=== PATIENT | male | born 2000 | race Caucasian/White ===

== ENCOUNTER 2024-10-09 10:45 | Emergency (ER) | payer SELFPAY ==
[2024-10-09] VITALS (18 sets, daily range): BP systolic 131–168; BP diastolic 75–96; PULSE 86–105; RESP 18–20; TEMP 36.5–37.3; O2SAT 97–100
--- OUTSIDE RECORDS SUMMARY | 2024-10-09 10:47 | XMS_ITS | Clinical Summary ---
Author Organization [employer] Address [address] [place] [address] Care Team Providers Care Health Care Aide Name Role Phone Unavailable Primary Care Provider Unavailabl e Source Comments You are receiving this document as you are listed as the primary care provider,follow-up provider, or the patient has been referred to you for consultation.This is in compliance with the Medicare and[facility] EHR Incentive Program,which states Providers who transition their patient to another setting of careor provider of care or refers their patient to another provider of care shouldprovide summary care record for each transition of care or referral. [employer] Medications montelukast (SINGULAIR) 10 MG tablet Take 1 Tablet (10 mg) by mouth every evening. 90 Tablet 03/13/2024 1:40 PM CDT 03/13/2024 Active ALBUterol sulfate HFA 108 (90 Base) MCG/ACT inhaler Inhale 1-2 Puffs every 4 hours as needed for Wheezing. 8.5 g 03/13/2024 1:40 PM CDT 03/13/2024 Active Social History Tobacco Use Types Packs/Day Years Used Date Smoking Tobacco: Never Assessed Sex and Gender Information Value Date Recorded Sex Assigned at Not on file Legal Sex Male 12:18 PM CDT Gender Identity Not on file Sexual Orientation Not on file Last Filed Vital Signs Vital Sign Reading Time Taken Comments Blood Pressure 152/79 03/13/2024 12:38 PM CDT Pulse 81 03/13/2024 12:38 PM CDT Temperature 36.8 C (98.3 F) 03/13/2024 12:38 PM CDT Respiratory Rate 20 03/13/2024 12:38 PM CDT Oxygen Saturation 98% 03/13/2024 12:38 PM CDT Inhaled Oxygen Concentration - - Weight - - Height - - Body Mass Index - - Plan of Treatment Health Maintenance Due Date Last Done Comments Hep C Screening (Preventive Services) 2002 MenB Immunization Discussion 2002 HIV Screening (Preventive Services) 2018 Adult Preventive Visit 2020 HepB (1) 2021 COVID-19 Vaccine (2 - season) 2024 06/25/2021 Influenza (#1) 2024 06/25/2021, 01/2021, 05/24/2017 DTaP/Tdap/Td (7 - Tdap) 04/10/2025 04/10/20 15, 04/12/2008, 04/03/2005, Additional history exists Zoster/Shingles (1 of 2) 2052 Hib Completed 08/28/2003, 11/15, 2002 Pneumococcal Aged Out 08/28/2003, 11/15, 2002 No longer eligible based on patient's age to complete this topic IPV (Polio) Completed 04/12/2008, 03/16, 2002, Additional history exists MCV4 Aged Out 04/10/2015 No longer eligi ble based on patient's age to complete this topic HPV Vaccine Completed 03/13/2016, 04/10/2015 HepA Completed 03/13/2016, 04/10/2015 Insurance [employer] [phone]
--- OUTSIDE RECORDS SUMMARY | 2024-10-09 10:47 | XMS_ITS | Clinical Summary ---
Author Organization [place] Address Formerly [facility] [place] [address] Care Team Providers Care Core Drier Name Role Phone Danny Collazo PA-C Primary Care Provider [phone] Allergies Active Allergy Reactions Criticality Noted Date Comments No Known Drug Allergy 2002 Medications montelukast (SINGULAIR) 5 MG chewable tabletIndicatio ns:Intermittent asthma Take 1 tablet by mouth daily. 90 tablet 3 1 Active levalbuterol (XOPENEX) 1.25 MG/3ML nebulizer solutionIndicat ions:Intermitte nt asthma Take 3 mLs by nebulization every 4 hours as needed for shortness of breath / dyspnea. 1 Package 3 2 Active montelukast (SINGULAIR) 5 MG chewable tablet Take 1 tablet by mouth At Bedtime. 90 tablet 1 2 Active montelukast (SINGULAIR) 10 MG tablet Take 0.5 tablets by mouth At Bedtime. 45 tablet 3 3 Active levalbuterol (XOPENEX HFA) 45 MCG/ACT inhalerIndicati ons:Intermitten t asthma Inhale 2 puffs into the lungs every 4 hours as needed for shortness of breath / dyspnea. 1 Inhaler 3 3 Active Active Problems Problem Noted Date Diagnosed Date Intermittent asthma 10/14/2010 Cough 03/08/2007 Immunizations Name Administration Dates Next Due Comvax (HIB/HepB) 2002,2002 DTAP (<7y) 04/12/2008,04/03/2005,2002 ,2002 HepB 2002 MMR 04/12/2008,08/28/2003 Pneumococcal (PCV 7) 08/28/2003,2002,07/25 Poliovirus, inactivated (IPV) 04/12/2008, 005,2002,2002 TDAP (Adacel,Boostrix) 04/10/2015 TRIHIBIT (DTAP/HIB, <7y) 08/28/2003 Varicella 04/12/2008,08/28/2003 Family History Medical History Relation Comments Respiratory Brother 3 Asthma Respiratory Brother 4 Half brother has hayfever Cancer Father Throat cancer-finn rgery and radiation Cerebrovascular Disease Father mini-st rokes Heart Disease Father By-pass Lipids Father Osteoporosis Father Multiple joint f usions Psychotic Disorder Father Depression Thyroid Disease Father Related to radia tion Heart Disease Maternal Grandfather Hypertension Maternal Grandfather Respiratory Maternal Grandfather Gastrointestinal Disease Maternal Grandmother co litis Hypertension Maternal Grandmother Allergies Mother Hayfever Diabetes Mother gestational Gastrointestinal Disease Mother Hx of u lcers Hypertension Mother Controlled with medication Respiratory Mother Asthma Alcohol/Drug Paternal Grandfather Cerebrovascular Disease Paternal Grandfather Alcohol/Drug Paternal Grandmother Heart Disease Paternal Grandmother Relation Status Comments Brother 1 Alive 10 years old Brother 2 Alive Half brother Brother 3 Brother 4 Father Alive To Maternal Grandfather Alive Maternal Grandmother Alive Mother Alive Gabrielle Paternal Grandfather Paternal Grandmother Social History Tobacco Use Types Packs/Day Years Used Date Smoking Tobacco: Passive Smo ke Exposure - Never Smoker Smokeless Tobacco: Never Comments:Smoke in the house Alcohol Use Standard Drinks/Week Comments Not Asked 0 (1 standard drink = 0.6 oz pur e alcohol) Adolescent Education Answer Date Record ed Getting School Help Needed Not on file 06/01 Sex and Gender Information Value Date Recorded Sex Assigned at Not on file 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 Gender Identity Not on file Sexual Orientation Not on file Last Filed Vital Signs Vital Sign Reading Time Taken Comments Blood Pressure 151/70 04/30/2022 10:45 PM CDT Pulse 83 04/30/2022 10:45 PM CDT Temperature 36.4 C (97.5 F) 04/30/2022 8:58 PM CDT Respiratory Rate 20 04/30/2022 10:45 PM CDT Oxygen Saturation 99% 04/30/2022 10:45 PM CDT Inhaled Oxygen Concentration - - Weight 123.8 kg (273 lb) 04/30/2022 8:58 PM CDT Height 185.4 cm (6' 1) 04/30/2022 8:58 PM CDT Body Mass Index 36.02 04/30/2022 8:58 PM CDT Plan of Treatment Health Maintenance Due Date Last Done Comments ADVANCE CARE PLANNING 2002 ANNUAL REVIEW OF HM ORDERS 2002 ASTHMA ACTION PLAN 2002 ASTHMA CONTROL TEST 2002 HIV SCREENING 2017 MENINGITIS B IMMUNIZATION (1 of 2 - Standard) 2018 HEPATITIS C SCREENING 2020 Pneumococcal Vaccine: Pediatrics (0 to 5 Years) and At-Risk Patients (6 to 49 Years) (1 of 2 - PCV) 2021 08/28/2003, 2002, 2002 YEARLY PREVENTIVE VISIT 06/25/2022 06/25/20 21, 04/12/2008, 04/03/2005, Additional history exists COVID-19 Vaccine (2 - season) 2024 06/25/2021 INFLUENZA VACCINE (#1) 2024 , 08/21/2020, 05/24/2017 PHQ-2 (once per calendar year) 2024 DTAP/TDAP/TD IMMUNIZATION (7 - Td or Tdap) 04/10/2025 04/10/2015, 04/12/2008, 04/03/2005, Additional history exists ZOSTER IMMUNIZATION (1 of 2) 2052 RSV VACCINE (1 - 1-dose 75+ series) 2077 HEPATITIS B IMMUNIZATION Completed 003, 2002, 2002, Additional history exists MENINGITIS IMMUNIZATION Aged Out 04/10/2015 No l onger eligible based on patient's age to complete this topic HPV IMMUNIZATION Completed 03/13/2016, , 04/10/2015 RSV MONOCLONAL ANTIBODY Aged Out No l onger eligible based on patient's age to complete this topic Insurance [address], [place] [id number] [address] [place] [id number] WC RISK ADMINSTRATION [facility] Advance Directives For more information, please contact: [phone] * No Code Status (Latest Code Status on File) Date Activated Date Inactivated Comments 07/25/2004 2:39 PM 07/25/2004 3:39 PM Care Teams Core Drier Relationship Specialty Start Date End Date Danny Collazo PA-C [facility] [place] [address] [place] [address] PCP - General Family Practice 10/19/13
--- OUTSIDE RECORDS SUMMARY | 2024-10-09 10:47 | XMS_ITS | Clinical Summary ---
Author Organization [facility] Address [address] [place] [id number] Care Team Providers Care Surgical Elastic Knitter Hand Frame Name Role Phone [facility] Primary Care Provid er Allergies No known active allergies Medications montelukast (Singulair) 10 mg tablet Take 10 mg by mouth once daily. Active Active Problems No known active problems Social History Tobacco Use Types Packs/Day Years Used Date Smoking Tobacco: Former Cigarettes 1 10.1 S tarted: 2014 Smokeless Tobacco: Former Chew Quit: 02/10/2023 Tobacco Cessation:Counseling Given: Not Answered Alcohol Use Standard Drinks/Week Comments Yes 0 (1 standard drink = 0.6 oz pur e alcohol) 1 on weekends Social Connections Answer Date Recorded Do you often feel lonely or isolated from those around you? 4 09/08/2023 Financial Resource Strain Answer Date R ecorded Difficulty of Paying Living Expenses 3 09/08/2023 Difficulty of Paying Living Expenses Not on file 09/08/2023 Food Insecurity Answer Date Recorded Do you worry your food will run out before you are able to buy more? 1 09/08/2023 Transportation Needs Answer Date Record ed Does lack of transportation keep you from medica l appointments? 1 09/08/2023 Does lack of transportation keep you from work, meetings or getting things that you need? 1 09/08/2023 Housing Stability Answer Date Recorded What is your housing situation today? 1 09/08/2023 Utilities Answer Date Recorded Do you have trouble paying f or utilities (for example, heat, electricity, water, phone)? 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 MERCHANDISER Gender Identity Not on file Sexual Orientation Not on file Obstetrics History Last Filed Vital Signs Vital Sign Reading Time Taken Comments Blood Pressure 126/70 09/21/2023 8:10 AM SUPPORT MERCHANDISER Pulse 86 09/21/2023 8:10 AM SUPPORT MERCHANDISER Temperature - - Respiratory Rate 18 09/21/2023 8:10 AM SUPPORT MERCHANDISER Oxygen Saturation - - Inhaled Oxygen Concentration - - Weight 120.2 kg (265 lb) 09/08/2023 8:22 AM SUPPORT MERCHANDISER Height - - Body Mass Index - - Plan of Treatment Health Maintenance Due Date Last Done Comments Tdap 2013 Depression screening for age 12+ 2014 HIV for age 15-65 2017 HPV series for age 9-26 (1 - Male 3-dose series) 2017 BMI (ht and wt on same day) for age 18+ 2020 Hepatitis C screening for ag e 18-79 2020 Tetanus booster 2022 COVID-19 vaccine series ( season) 2024 06/25/2021 Influenza for age 9-49 04/16/2024 Pneumococcal series for age 6-49 Aged Out No longer eligible based on patient's age to complete this topic Insurance [facility] [place] [id number] [place] [employer] [place] [id number] Care Teams Surgical Elastic Knitter Hand Frame Relationship Specialty Start Date End Date [facility] [address] [place] [address] PCP - General 09/08/23
--- NOTE | 2024-10-09 11:18 | ED_ITS ---
HPI - Abdominal Pain General Time Seen by Provider: 11:18 Date Seen: 10/09/24 Chief Complaint: Abdominal Pain Stated Complaint: Abdominal pain, vomited blood Time Seen by Provider: 10/09/24 11:18 Source: patient, RN notes reviewed and old records reviewed Mode of arrival: ambulatory Limitations: no limitations History of Present Illness HPI narrative: Patient is a very pleasant 24-year-old with past history of hematemesis, ongoing use of nicotine who comes to the emergency room with 2 episodes of blood in his vomit as well as abdominal pain. Patient notes the onset of the symptoms yesterday evening. He notes that his entire abdomen hurts and is feeling like somebody is twisting his got. He shows me that most of the pain extends from just below the umbilicus to the epigastrium. He had a normal bowel movement earlier today when he initially tried to be seen at urgent care. He was sent to the emergency room for further evaluation. Patient notes that he did go through some evaluation for previous hematemesis and abdominal pain but never did get endoscopies. Notes that he got better after a few months and just did not go back. He also notes that he has had an echocardiogram in the past and was told that he had 2 holes in his heart but that he should just monitor this. Patient is very concerned and is not wanting any pain medications given his work. He denies fever or other ill contacts. No diarrhea dysuria or hematuria. Patient tells me that he also has some double jointed Giselle. I do ask about Gino Danlos and he says nothing is ever been diagnosed. Does not have a marfanoid type of body habitus. Related Data Home Medications ?Medication ?Instructions ?Recorded ?Confirmed albuterol sulfate 2.5 mg/3 mL 2.5 mg inhalation Q4-6H PRN 10/09/24 10/09/24 (0.083 %) solution for nebulization albuterol sulfate 90 mcg/actuation 2 puff inhalation Q6H PRN 10/09/24 10/09/24 aerosol inhaler montelukast 10 mg tablet 10 mg PO QDAY 10/09/24 10/09/24 Previous Rx's ?Medication ?Instructions ?Recorded hydrocodone 5 mg-acetaminophen 325 1 tab PO Q4-6H PRN pain #6 tabs 10/09/24 mg tablet Allergies Allergy/AdvReac Type Severity Reaction Status Date / Time No Known Drug Allergies Allergy Verified 10/09/24 10:20 Review of Systems Status of ROS Reports: 10 or more systems reviewed and unremarkable except as noted in History and below Const Denies: fever, chills or fatigue Eyes Denies: change in vision ENMT Denies: throat pain, neck pain or nasal congestion Cardio Reports: lightheadedness; Denies: chest pain, swelling of feet/ankles or shortness of breath with exertion Resp Denies: shortness of breath or cough GI Reports: abdominal pain, nausea and vomiting; Denies: diarrhea, constipation or blood in stool Denies: painful urination or urinary frequency Musculo Denies: back pain, neck pain or extremity pain Endo Denies: fatigue PFSH PFSH Social History Smoking Status: Never smoker Do you use any of these nicotine containing products: Vaping Products How often do you have a drink containing alcohol: monthly or less AUDIT-C Alcohol total score: 1 Non-prescribed substance use: denies use Exam Narrative: Exam Narrative: Patient is alert and oriented. He is very respectful. Eyes are clear and EOM is full. Head is atraumatic. Lips are moist. Neck is supple. Heart with a tachycardic rate but normal rhythm. Lungs are clear bilaterally. Abdomen is with discomfort with palpation but no masses are palpated. During our interview patient suddenly has increased pain in his abdomen he becomes diaphoretic and is tearful. He notes that this will last a few minutes. Lower extremities without edema. Bowel sounds are present. Const: Vital Signs, click to edit/add: Vital Signs - 24 hr 10/09/24 11:10 10/09/24 12:23 10/09/24 12:25 Temperature 97.7 F Pulse Rate 103 H 105 H Pulse Rate [Pulse Oximeter] 91 Respiratory Rate 20 Blood Pressure 168/87 H Blood Pressure [Ri ght Upper Arm] 131/95 H Pulse Oximetry 99 99 100 Oxygen Delivery Me thod Room Air 10/09/24 12:30 10/09/24 12:32 10/09/24 12:32 Temperature Pulse Rate 97 95 95 Pulse Rate [Pulse Oximeter] Respiratory Rate Blood Pressure 139/96 H 139/96 H Blood Pressure [Ri ght Upper Arm] Pulse Oximetry 98 98 98 Oxygen Delivery Me thod 10/09/24 12:45 10/09/24 13:00 10/09/24 13:05 Temperature Pulse Rate 92 91 92 Pulse Rate [Pulse Oximeter] Respiratory Rate Blood Pressure Blood Pressure [Ri ght Upper Arm] Pulse Oximetry 99 98 98 Oxygen Delivery Me thod 10/09/24 13:15 10/09/24 13:30 10/09/24 13:35 Temperature Pulse Rate 92 105 H 98 Pulse Rate [Pulse Oximeter] Respiratory Rate Blood Pressure Blood Pressure [Ri ght Upper Arm] Pulse Oximetry 98 98 99 Oxygen Delivery Me thod 10/09/24 13:45 10/09/24 14:00 10/09/24 14:05 Temperature Pulse Rate 86 103 H 100 Pulse Rate [Pulse Oximeter] Respiratory Rate Blood Pressure Blood Pressure [Ri ght Upper Arm] Pulse Oximetry 100 98 97 Oxygen Delivery Me thod 10/09/24 14:15 10/09/24 14:30 10/09/24 14:45 Temperature Pulse Rate 102 H 97 93 Pulse Rate [Pulse Oximeter] Respiratory Rate Blood Pressure Blood Pressure [Ri ght Upper Arm] Pulse Oximetry 98 98 98 Oxygen Delivery Me thod Course Course ED Course: Differential diagnosis includes but is not limited to small-bowel obstruction, constipation, colitis, biliary colic, gastritis. Will place IV and give 1 L of normal saline, Toradol 15 mg, Zofran 4 mg and Protonix 80 mg. Plan on abdominal CT along with CBC, comprehensive panel, CRP, lipase. Reevaluation(s) Reevaluation #1: Patient noted to have return from CT after episode of lightheadedness and confusion. Radiology staff describes him sitting up becoming very pale and weak. Back here in the emergency room he is tremulous but speaking normally to me pupils are equal round and reactive. With talking he gradually settles down and seems to be doing much better. Patient was given morphine 4 mg IV. Reevaluation #2: Patient notes great improvement of his discomfort after morphine. Fortunately abdominal CT does not show any acute findings. Patient did not show any evidence of hypotension while he has been here. His white count is normal as his is CRP. Electrolyte panel also within normal limits including LFTs. Urinalysis without evidence of UTI. Vital Signs Vital signs: Initial Vital Signs Temperature 97.7 F 10/09/24 11:10 Temperature Source Temporal Artery Scan 10/09/24 11:10 Pulse Rate 91 10/09/24 11:10 Respiratory Rate 20 10/09/24 11:10 Blood Pressure 131/95 H 10/09/24 11:10 Blood Pressure Mean 107 H 10/09/24 11:10 Blood Pressure Position Sitting 10/09/24 11:10 Pulse Oximetry 99 10/09/24 11:10 Oxygen Delivery Method Room Air 10/09/24 11:10 Vital Signs Temperature 97.7 F 10/09/24 11:10 Pulse Rate 91 10/09/24 11:10 Respiratory Rate 20 10/09/24 11:10 Blood Pressure 131/95 H 10/09/24 11:10 Pulse Oximetry 99 10/09/24 11:10 Oxygen Delivery Method Room Air 10/09/24 11:10 Temperature 97.7 F 10/09/24 11:10 Pulse Rate 93 10/09/24 14:45 Respiratory Rate 20 10/09/24 11:10 Blood Pressure 139/96 H 10/09/24 12:32 Pulse Oximetry 98 10/09/24 14:45 Oxygen Delivery Method Room Air 10/09/24 11:10 Medications Administered Medications: Discontinued Medications Generic Name Dose Route Start Last Admin Trade Name Freq PRN Reason Stop Dose Admin Sodium Chloride 1,000 mls @ 1,000 mls/hr 10/09/24 11:27 10/09/24 13:45 0.9 % Sodium Chloride 1000 Ml IV 10/09/24 12:26 Infused .Q1H CIPRIANO Infusion Ketorolac Tromethamine 15 mg 10/09/24 11:26 10/09/24 11:46 Ketorolac 15 Mg/Ml Inj IVP 10/09/24 11:27 15 mg ONCE ONE Administration Morphine Sulfate 4 mg 10/09/24 13:16 10/09/24 13:45 Morphine 4 Mg/Ml Inj IVP 10/09/24 13:17 4 mg ONCE ONE Administration Ondansetron HCl 4 mg 10/09/24 11:26 10/09/24 11:48 Ondansetron 2 Mg/Ml Inj IVP 10/09/24 11:27 4 mg ONCE ONE Administration Pantoprazole Sodium 80 mg 10/09/24 11:26 10/09/24 11:58 Pantoprazole Sodium 40 Mg Inj IVP 10/09/24 11:27 80 mg ONCE ONE Administration MDM - Abdominal Pain MDM Narrative Medical decision making narrative: 1. Abdominal pain -at this time CT is reassuring as are laboratory values. Patient was given initially Toradol in the ER which moderately improved his pain. Patient had returned from CT with increasing discomfort at that time was given morphine 4 mg with significant improvement of his symptoms. Fortunately CT does not show any evidence of aortic aneurysm bowel obstruction colitis. He also notes that he has a rectal fissure that is finally in the healing stages. I would like patient to use MiraLax 1/2 cap b.i.d. to clear out some stool. I am wondering if he does have some constipation. 2. Hematemesis-no evidence of vomiting while in the ED or vomiting any blood. He notes this has happened to him in the past as well. He was given Protonix 80 mg IV. Would like him to continue a PPI in the form of omeprazole 40 mg or 2 tablets every evening for the next 2 weeks. He will need to return for worsening symptoms. 3. [id number] on Wednesday with Dr. Jordan surgeon for evaluation of colonoscopy and an endoscopy. This will be at the [facility] at 1030 hours. At that time consult for his fissure is also recommended. Will be discharging patient home in the care of his significant other. Prior to discharge patient voices concerns regarding the possibility of exposure to STI. His significant other was very loving and supportive here today did have intercourse with somebody while she was at college. Will add a GC chlamydia to today's urine sample. Medical Records Attestation: I reviewed the patient's medical records. Lab Data Attestation: I reviewed the patient's lab results. Labs: Lab Results 10/09/24 10/09/24 Range/Units 11:20 11:35 WBC 8.41 (4.50-11.00) K/uL RBC 5.74 (4.30-5.90) m/uL Hgb 16.5 (13.5-17.5) gm/dL Hct 50.3 (37.0-53.0) % MCV 88 (80-100) fL MCH 29 (26-34) pg MCHC 33 (32-36) gm/dL RDW Coeff of Saira 12.6 (11.5-15.5) % Plt Count 220 (140-440) K/uL Neut % (Auto) 82.4 H (42.0-72.0) % Lymph % (Auto) 9.3 L (20-44) % [place] % (Auto) 5.7 (0.0-11.0) % Eos % (Auto) 2.0 (0.0-7.0) % Baso % (Auto) 0.4 (0.0-3.0) % Neut # (Auto) 6.90 (1.7-7.0) K/uL Lymph # (Auto) 0.80 L (0.90-2.90) K/uL [place] # (Auto) 0.50 (0.00-0.90) K/UL Eos # (Auto) 0.17 (0.00-0.50) K/uL Baso # (Auto) 0.03 (0.00-0.30) K/uL Abs Immat Gran (auto) 0.02 (0.00-0.30) K/uL Imm/Tot Granulo (auto) 0.2 % Sodium 141 (135-149) mmol/L Potassium 4.3 (3.6-5.1) mmol/L Chloride 104 (96-114) mmol/L Carbon Dioxide 27 (20-32) mmol/L Anion Gap 10 (7-15) mEq/L BUN 12 (5-24) mg/dL Creatinine 0.9 (0.5-1.5) mg/dL Estimated GFR 124 ml/min Glucose 89 (60-115) mg/dL Lactate 1.3 (0.5-1.9) mmol/L Calcium 9.6 (8.4-10.6) mg/dL Total Bilirubin 0.6 (0.1-1.5) mg/dL AST 19 (12-35) U/L ALT 25 (4-50) U/L Alkaline Phosphatase 74 (40-150) U/L C-Reactive Protein < 0.5 L (0.5-1.0) mg/dL Total Protein 8.1 (6.0-8.3) g/dL Albumin 4.9 (3.3-5.0) g/dL Lipase 76 (23-300) U/L Urine Color Yellow (Yellow) Urine Appearance Clear (Clear) Urine pH 6.0 (5.0-8.5) Ur Specific [place] 1.025 (1.000-1.030) Urine Protein Negative (Negative) Urine Glucose (UA) Negative (Negative) Urine Ketones Negative (Negative) Urine Blood Negative (Negative) Urine Nitrite Negative (Negative) Urine Bilirubin Negative (Negative) Urine Urobilinogen 0.2 (0.2-1.0) Ur Leukocyte Esterase Negative (Negative) Urine RBC 0-2 (0-2) Urine WBC 0-2 (0-5) Ur Squamous Epith Cells None (None-Few) Urine Bacteria None (None) Imaging Data CT scan - abdomen: Attestation: I have reviewed the pertinent imaging results. Radiologist's impression: TECHNIQUE: CT of the abdomen and pelvis with 128 cc of Isovue 370 intravenous contrast. Please note that all CT scans at this facility use dose modulation, iterative reconstruction, and/or weight-based dosing when appropriate to reduce radiation dose to as low as reasonably achievable. FINDINGS: ABDOMEN Liver: Normal contour. Minimal focal fatty infiltration involving the left hepatic lobe adjacent to the intersegmental fissure. No significant focal lesion. No intrahepatic biliary ductal dilatation. Patent portal veins. Patent hepatic veins. Gallbladder: Normal size. No pericholecystic inflammatory changes. Normal common duct caliber. Pancreas: Normal contour and attenuation. No peripancreatic inflammatory changes. No significant focal lesion. Normal main duct caliber. Spleen: Not enlarged. No significant focal lesion. Patent splenic artery and vein. Adrenal Glands: Symmetrical adrenal glands. No significant focal lesion. Kidneys: Normal bilateral renal attenuation. No significant focal lesion. No nephrolith. No dilatation of the intrarenal collecting systems. No ureteral stone. Nondilated ureters. Patent renal arteries and veins. Gastrointestinal tract: Normal caliber, attenuation and wall thickness of the gastrointestinal tract. No inflammatory changes. Normal small bowel mesentery. Normal appendix. Vascular: Abdominal aorta and its major proximal branches including the celiac, superior mesenteric, inferior mesenteric, renal, and bilateral common iliac arteries are patent. Patent superior mesenteric vein. Peritoneal Cavity/Retroperitoneum: No ascites. No adenopathy. PELVIS No bladder lesion is identified. No significant incidental findings related to the prostate or seminal vesicles. No ascites. No adenopathy. SKELETON AND BODY WALL No acute or significant incidental findings. LOWER THORAX Partially included lower thoracic wall, lungs, pleural spaces and mediastinum are otherwise without significant incidental findings. IMPRESSION: No findings to explain the clinical history of periumbilical abdominal pain or hematemesis. Consider gastroenterology referral for further evaluation (endoscopy) as clinically appropriate Discharge Plan Discharge Clinical Impression: Abdominal pain, Gastritis Patient Disposition: Home, Self-Care Condition: Improved Additional Instructions: Please follow-up with Dr. Jordan our surgeon at [facility] Wednesday am 1030 to discuss symptoms and possible endoscopy and colonoscopy; Continue medication to control acid production in your stomach. Today's dose to the IV should last 24 hours. You may continue taking a similar medication called omeprazole tomorrow evening. I would like you to take 2 tablets or 40 mg of this medicine which is available [id number]. I would like to have you take it for 2 weeks. Avoid all alcohol, spicy foods during this time. I would like you to use MiraLax 1/2 dose morning and night until stools are soft Vicodin a combination of a narcotic called hydrocodone and Tylenol is sent to the pharmacy as we do not have this available in our vending machine at this time. Try to limit use as much as possible. Return to the emergency room for worsening symptoms. Prescriptions: New hydrocodone-acetaminophen 5-325 mg tablet 1 tab PO Q4-6H PRN (Reason: pain) Qty: 6 0RF No Action albuterol sulfate 90 mcg/actuation HFA aerosol inhaler 2 puff inhalation Q6H PRN albuterol sulfate 2.5 mg /3 mL (0.083 %) solution for nebulization 2.5 mg inhalation Q4-6H PRN montelukast 10 mg tablet 10 mg PO QDAY Follow Up/Referrals: Provider,Not a Local [Primary Care Provider] - Stand Alone Forms: [employer] Info Instructions
[2024-10-09 11:26] LABS: Appearance Urine Clear (Clear); Bilirubin Urine Negative (Negative); Blood Urine Negative (Negative); Color Urine Yellow (Yellow); Glucose Urine Negative (Negative); Ketones Urine Negative (Negative); Leukocyte Esterase Urine Negative (Negative); Nitrite Urine Negative (Negative); Protein Urine Negative (Negative); Specific Gravity Urine 1.025 (1.000-1.030); Urobilinogen Urine 0.2 (0.2-1.0)
--- NOTE | 2024-10-09 11:26 | CRLHL7_ITS ---
For Patients: As a result of the 21st Century Cures Act, medical imaging exams and procedure reports are released immediately into your electronic medical record. You may view this report before your referring provider. If you have questions, please contact your health care provider. INDICATION: Periumbilical abdominal pain. Hematemesis. COMPARISON: None available. TECHNIQUE: CT of the abdomen and pelvis with 128 cc of Isovue 370 intravenous contrast. Please note that all CT scans at this facility use dose modulation, iterative reconstruction, and/or weight-based dosing when appropriate to reduce radiation dose to as low as reasonably achievable. FINDINGS: ABDOMEN Liver: Normal contour. Minimal focal fatty infiltration involving the left hepatic lobe adjacent to the intersegmental fissure. No significant focal lesion. No intrahepatic biliary ductal dilatation. Patent portal veins. Patent hepatic veins. Gallbladder: Normal size. No pericholecystic inflammatory changes. Normal common duct caliber. Pancreas: Normal contour and attenuation. No peripancreatic inflammatory changes. No significant focal lesion. Normal main duct caliber. Spleen: Not enlarged. No significant focal lesion. Patent splenic artery and vein. Adrenal Glands: Symmetrical adrenal glands. No significant focal lesion. Kidneys: Normal bilateral renal attenuation. No significant focal lesion. No nephrolith. No dilatation of the intrarenal collecting systems. No ureteral stone. Nondilated ureters. Patent renal arteries and veins. Gastrointestinal tract: Normal caliber, attenuation and wall thickness of the gastrointestinal tract. No inflammatory changes. Normal small bowel mesentery. Normal appendix. Vascular: Abdominal aorta and its major proximal branches including the celiac, superior mesenteric, inferior mesenteric, renal, and bilateral common iliac arteries are patent. Patent superior mesenteric vein. Peritoneal Cavity/Retroperitoneum: No ascites. No adenopathy. PELVIS No bladder lesion is identified. No significant incidental findings related to the prostate or seminal vesicles. No ascites. No adenopathy. SKELETON AND BODY WALL No acute or significant incidental findings. LOWER THORAX Partially included lower thoracic wall, lungs, pleural spaces and mediastinum are otherwise without significant incidental findings. IMPRESSION: No findings to explain the clinical history of periumbilical abdominal pain or hematemesis. Consider gastroenterology referral for further evaluation (endoscopy) as clinically appropriate. Please note that all CT scans at this facility use dose modulation, iterative reconstruction, and/or weight-based dosing when appropriate to reduce radiation dose to as low as reasonably achievable. Dictated by Chalino Drummond MD @ 10/09/2024 1:34:32 PM (Electronically Signed)
[2024-10-09 11:32] LABS: RBC Urine 0-2 (0-2); WBC Urine 0-2 (0-5)
[2024-10-09 11:42] LABS: Lactate* 1.3 mmol/L (0.5-1.9)
[2024-10-09] MEDS: KETOROLAC 15 MG/ML inj IVP (11:46)
[2024-10-09] MEDS: ONDANSETRON 2 MG/ML inj 4 MG IVP (11:48)
[2024-10-09 11:50] LABS: Basophils Absolute Auto 0.03 K/uL (0.00-0.30); Basophils Percent Auto 0.4 % (0.0-3.0); Eosinophils Absolute Auto 0.17 K/uL (0.00-0.50); Hematocrit 50.3 % (37.0-53.0); Hemoglobin* 16.5 gm/dL (13.5-17.5); Immature Granulocytes Abs Auto 0.02 K/uL (0.00-0.30); Immature Granulocytes Pct Auto 0.2 %; Lymphocytes Percent Auto 9.3 % (20-44); Mean Corpuscular HGB Conc 33 gm/dL (32-36); Mean Corpuscular Hemoglobin 29 pg (26-34); Mean Corpuscular Volume 88 fL (80-100); Monocytes Percent Auto 5.7 % (0.0-11.0); Neutrophils Percent Auto 82.4 % (42.0-72.0); Platelet Count* 220 K/uL (140-440); RDW Coefficient of Variation % 12.6 % (11.5-15.5); Red Blood Count 5.74 m/uL (4.30-5.90); White Blood Count* 8.41 K/uL (4.50-11.00)
[2024-10-09 11:54] LABS: Slide Review Reflex No
[2024-10-09] MEDS: 0.9 % SODIUM CHLORIDE 1000 ml 1,000 ML IV (11:58)
[2024-10-09] MEDS: PANTOPRAZOLE SODIUM 40 MG INJ 80 MG IVP (11:58)
[2024-10-09 12:05] LABS: Albumin* 4.9 g/dL (3.3-5.0); Chloride* 104 mmol/L (96-114); Potassium* 4.3 mmol/L (3.6-5.1); Sodium* 141 mmol/L (135-149)
[2024-10-09 12:07] LABS: Bilirubin Total* 0.6 mg/dL (0.1-1.5); Creatinine* 0.9 mg/dL (0.5-1.5); Estimated Glomerular Filt Rate 124 ml/min
[2024-10-09 12:08] LABS: Alanine Aminotransferase* 25 U/L (4-50); Alkaline Phosphatase* 74 U/L (40-150); Anion Gap 10 mEq/L (7-15); Aspartate Amino Transferase* 19 U/L (12-35); Blood Urea Nitrogen* 12 mg/dL (5-24); Carbon Dioxide* 27 mmol/L (20-32); Glucose* 89 mg/dL (60-115); Lipase* 76 U/L (23-300); Total Protein* 8.1 g/dL (6.0-8.3)
[2024-10-09 12:09] LABS: Calcium* 9.6 mg/dL (8.4-10.6)
[2024-10-09 12:12] LABS: C Reactive Protein* < 0.5 mg/dL (0.5-1.0)
--- OUTSIDE RECORDS SUMMARY | 2024-10-09 12:14 | XMS_ITS | Clinical Summary ---
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 Gender Identity Not on file Sexual Orientation Not on file Obstetrics History Last Filed Vital Signs Vital Sign Reading Time Taken Comments Blood Pressure 126/70 09/21/2023 8:10 AM GASTROINTESTINAL TECHNICIAN Pulse 86 09/21/2023 8:10 AM GASTROINTESTINAL TECHNICIAN Temperature - - Respiratory Rate 18 09/21/2023 8:10 AM GASTROINTESTINAL TECHNICIAN Oxygen Saturation - - Inhaled Oxygen Concentration - - Weight 120.2 kg (265 lb) 09/08/2023 8:22 AM GASTROINTESTINAL TECHNICIAN Height - - Body Mass Index - [...] age to complete this topic Insurance [employer] [facility] [place] [id number] [employer] [place] [employer] [place] [employer] [place] [id number] Care Teams School Age Program Teacher Relationship Specialty Start Date End Date [facility] [address] [place] [address] PCP - General 09/08/23
--- OUTSIDE RECORDS SUMMARY | 2024-10-09 12:14 | XMS_ITS | Clinical Summary ---
Author Organization [email or web address] Address [address] [place] [address] Care Team Providers Care Psychiatry Teacher Name Role Phone Unavailable Primary Care Provider Unavailabl e Source Comments You are receiving this document as you are listed as the primary care provider,follow-up provider, or the patient has been referred to you for consultation.This is in compliance with the Medicare and[facility] Clinicca[facility] EHR Incentive Program,which states Providers who transition their patient to another setting of careor provider of care or refers their patient to another provider of care shouldprovide summary care record for each transition of care or referral. [email or web address] Medications montelukast (SINGULAIR) 10 MG tablet Take [...] 03/13/2016, 04/10/2015 [place] [address]
--- OUTSIDE RECORDS SUMMARY | 2024-10-09 12:14 | XMS_ITS | Clinical Summary ---
Author Organization [place] Address [facility] [place] 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
[2024-10-09] MEDS: MORPHINE 4 MG/ML INJ IVP (13:45)
== END 2024-10-09 15:14 | disposition home or self-care (01) ==
PROVIDERS: Emergency Provider Family Medicine
DX: R10.9 Unspecified abdominal pain (principal); K29.70 Gastritis, unspecified, without bleeding
CPT/HCPCS: 36415; 74177; 80053; 81001; 83605; 83690; 85025; 86140; 87491; 87591; 99284; 99285; J1885; J2270; J2405; J2470; J7030; Q9967

== ENCOUNTER 2024-10-11 16:50 | Emergency (ER) | payer SELFPAY ==
[2024-10-11] VITALS (13 sets, daily range): BP systolic 114–143; BP diastolic 51–85; PULSE 64–98; RESP 18–20; TEMP 37; O2SAT 92–100; BMI 33.6
--- OUTSIDE RECORDS SUMMARY | 2024-10-11 16:52 | XMS_ITS | Clinical Summary ---
Author Organization [facility] Address [address] [place] [address] Care Team Providers Care Acid Condenser Name Role Phone Unavailable Primary Care Provider Unavailabl e Source Comments You are receiving this document as you are listed as the primary care provider,follow-up provider, or the patient has been referred to you for consultation.This is in compliance with the Medicare and[facility] Hospital[facility] EHR Incentive Program,which states Providers who transition their patient to another setting of careor provider of care or refers their patient to another provider of care shouldprovide summary care record for each transition of care or referral. [facility] Medications montelukast (SINGULAIR) 10 MG tablet Take [...] 03/13/2016, 04/10/2015 [place] [phone]
--- OUTSIDE RECORDS SUMMARY | 2024-10-11 16:52 | XMS_ITS | Clinical Summary ---
Author Organization [place] Address [facility] 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
--- OUTSIDE RECORDS SUMMARY | 2024-10-11 16:52 | XMS_ITS | Clinical Summary ---
Author Organization [facility] & [facility] Address [address] [place] [address] Care Team Providers Care General Utility Worker Name Role Phone [facility] Primary Care Provid er Allergies No known active allergies Medications montelukast (Singulair) 10 mg tablet Take 10 mg by mouth once daily. 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 Gender Identity Not on file Sexual Orientation Not on file Obstetrics History Last Filed Vital Signs Vital Sign Reading Time Taken Comments Blood Pressure 126/70 09/21/2023 8:10 AM ACID PURIFICATION EQUIPMENT OPERATOR Pulse 86 09/21/2023 8:10 AM ACID PURIFICATION EQUIPMENT OPERATOR Temperature - - Respiratory Rate 18 09/21/2023 8:10 AM ACID PURIFICATION EQUIPMENT OPERATOR Oxygen Saturation - - Inhaled Oxygen Concentration - - Weight 120.2 kg (265 lb) 09/08/2023 8:22 AM ACID PURIFICATION EQUIPMENT OPERATOR Height - - Body Mass Index - [...] age to complete this topic Insurance [facility] [place] [id number] [employer]UE [place] OF [place] RISK ADMINISTRATIVE SERVICES [place] [id number] Care Teams General Utility Worker Relationship Specialty Start Date End Date [facility] [address] [place] [address] PCP - General 09/08/23
--- NOTE | 2024-10-11 20:09 | ED.GENADULT ---
HPI - General Adult General Chief complaint: Abdominal Pain Stated complaint: stomach pain Time Seen by Provider: 10/11/24 20:08 History of Present Illness HPI narrative: Patient presents to the emergency department complaining of abdominal pain. Patient states he was seen for abdominal pain wednesday and was not able to get answers. He has increased weakness and dizziness over the last few days. Patient has been having liquid stools and thought he saw some blood in his stool. Was to follow up with surgery but has been unsuccessful in getting an appointment to this point. 24-year-old young man presenting to the emergency department with concern of abdominal pain. This is now 4th day of abdominal pain. Extensive evaluation in this emergency department 2 days ago following concerns of hematemesis and abdominal pain. He has continued to be intolerant of oral intake. Last vomiting however was twice 2 days ago. Today was on the toilet unsure what was going to come out of which end. Understood to potentially be constipated and has been taking MiraLax. He has now only been producing small watery red stool. More remote history what sounds like an anal fissure. No noted history of inflammatory bowel disorders. He has persistent especially left mid to low abdominal pain with escalations, sharp. Cramping. Can cause him to shake in pain. Was to follow up with General surgery but reports that recommendations were to schedule endoscopy and colonoscopy 1st. Has been feeling lightheaded. Had been prescribed small quantity of Vansant. Girlfriend who is been attending to him gave him half a tablet last night I believe which allowed him to sleep. Is hesitant to opiates given problem in high school. Was given Protonix in the emergency department and then ordered for omeprazole outpatient. No urinary tract symptoms other than earlier in course a singular episode of dysuria. Orthostatics prior to me seeing him are looking to be normal. Related Data Home Medications ?Medication ?Instructions ?Recorded ?Confirmed albuterol sulfate 2.5 mg/3 mL 2.5 mg inhalation Q4-6H PRN 10/09/24 10/11/24 (0.083 %) solution for nebulization albuterol sulfate 90 mcg/actuation 2 puff inhalation Q6H PRN 10/09/24 10/11/24 aerosol inhaler montelukast 10 mg tablet 10 mg PO QDAY 10/09/24 10/11/24 Previous Rx's ?Medication ?Instructions ?Recorded hydrocodone 5 mg-acetaminophen 325 1 tab PO Q4-6H PRN pain #6 tabs 10/09/24 mg tablet peg 3350-electrolytes 236 480 ml PO ONCE #8,000 mL 10/12/24 gram-22.74 gram-6.74 gram-5.86 gram solution (Golytely) Allergies Allergy/AdvReac Type Severity Reaction Status Date / Time No Known Drug Allergies Allergy Verified 10/11/24 18:21 Review of Systems Status of ROS: Reports: 6 or more systems reviewed and unremarkable except as noted in History and below [facility] Social History Smoking Status: Never smoker Do you use any of these nicotine containing products: Vaping Products Second hand tobacco smoke exposure: No How often do you have a drink containing alcohol: monthly or less AUDIT-C Alcohol total score: 1 Non-prescribed substance use: denies use Exam Narrative: Exam Narrative: Very polite, calm, deferential. Appears tired. Breathing easily. Skin is warm and dry. Oropharynx is a little sticky. Non erythematous. Lungs are clear. Heart in regular rate and rhythm. Might be a trace murmur. Abdomen with present bowel sounds. Moderately tender to palpation in the mid abdomen into the left side. Without peritoneal signs. Has well-perfused extremities without edema. Const: Vital Signs, click to edit/add: Vital Signs - 24 hr 10/11/24 18:14 10/11/24 20:01 10/11/24 20:02 Temperature 98.6 F Pulse Rate 71 Pulse Rate [Right Pulse Oximeter] 74 Pulse Rate [orthos tatic lying] 71 Pulse Rate [orthos tatic sitting] 90 Pulse Rate [orthos tatic standing] 94 Respiratory Rate 18 20 Blood Pressure 143/79 H Blood Pressure [Ri ght Upper Arm] 130/84 Blood Pressure [or thostatic lying] 136/80 Blood Pressure [or thostatic sitting] 139/78 Blood Pressure [or thostatic standing ] 140/79 H Pulse Oximetry 100 100 Oxygen Delivery Me thod Room Air 10/11/24 20:26 10/11/24 20:33 10/11/24 20:33 Temperature Pulse Rate 98 65 Pulse Rate [Right Pulse Oximeter] Pulse Rate [orthos tatic lying] Pulse Rate [orthos tatic sitting] Pulse Rate [orthos tatic standing] Respiratory Rate 18 20 Blood Pressure 138/71 133/74 Blood Pressure [Ri ght Upper Arm] Blood Pressure [or thostatic lying] Blood Pressure [or thostatic sitting] Blood Pressure [or thostatic standing ] Pulse Oximetry 98 99 96 Oxygen Delivery Me thod 10/11/24 21:02 10/11/24 21:33 10/11/24 21:49 Temperature 98.6 F Pulse Rate 72 64 Pulse Rate [Right Pulse Oximeter] Pulse Rate [orthos tatic lying] Pulse Rate [orthos tatic sitting] Pulse Rate [orthos tatic standing] Respiratory Rate 20 20 Blood Pressure 127/65 114/51 L Blood Pressure [Ri ght Upper Arm] Blood Pressure [or thostatic lying] Blood Pressure [or thostatic sitting] Blood Pressure [or thostatic standing ] Pulse Oximetry 97 92 Oxygen Delivery Me thod 10/11/24 22:02 10/11/24 22:30 10/11/24 22:32 Temperature 98.6 F Pulse Rate 66 89 Pulse Rate [Right Pulse Oximeter] Pulse Rate [orthos tatic lying] Pulse Rate [orthos tatic sitting] Pulse Rate [orthos tatic standing] Respiratory Rate 20 18 Blood Pressure 129/55 L 135/85 Blood Pressure [Ri ght Upper Arm] Blood Pressure [or thostatic lying] Blood Pressure [or thostatic sitting] Blood Pressure [or thostatic standing ] Pulse Oximetry 97 99 Oxygen Delivery Me thod 10/11/24 23:49 10/11/24 23:52 Temperature 98.6 F 98.6 F Pulse Rate Pulse Rate [Right Pulse Oximeter] 81 81 Pulse Rate [orthos tatic lying] Pulse Rate [orthos tatic sitting] Pulse Rate [orthos tatic standing] Respiratory Rate 18 18 Blood Pressure Blood Pressure [Ri ght Upper Arm] 129/85 129/85 Blood Pressure [or thostatic lying] Blood Pressure [or thostatic sitting] Blood Pressure [or thostatic standing ] Pulse Oximetry 99 Oxygen Delivery Me thod Room Air Documenting provider has reviewed patient's vital signs: yes Course Vital Signs Vital signs: Initial Vital Signs Temperature 98.6 F 10/11/24 18:14 Temperature Source Temporal Artery Scan 10/11/24 18:14 Pulse Rate 74 10/11/24 18:14 Pulse Rhythm Regular 10/11/24 18:14 Pulse Strength 3+ Normal 10/11/24 18:14 Respiratory Rate 18 10/11/24 18:14 Blood Pressure 130/84 10/11/24 18:14 Blood Pressure Mean 99 10/11/24 18:14 Blood Pressure Position Sitting 10/11/24 18:14 Pulse Oximetry 100 10/11/24 18:14 Oxygen Delivery Method Room Air 10/11/24 18:14 Vital Signs Temperature 98.6 F 10/11/24 18:14 Pulse Rate 74 10/11/24 18:14 Respiratory Rate 18 10/11/24 18:14 Blood Pressure 130/84 10/11/24 18:14 Pulse Oximetry 100 10/11/24 18:14 Oxygen Delivery Method Room Air 10/11/24 18:14 Temperature 98.6 F 10/11/24 23:52 Pulse Rate 81 10/11/24 23:52 Respiratory Rate 18 10/11/24 23:52 Blood Pressure 129/85 10/11/24 23:52 Pulse Oximetry 99 10/11/24 23:49 Oxygen Delivery Method Room Air 10/11/24 23:49 Medications Administered Medications: Discontinued Medications Generic Name Dose Route Start Last Admin Trade Name Freq PRN Reason Stop Dose Admin Hyoscyamine 0.25 mg 10/11/24 20:23 10/11/24 20:29 Hyoscyamine Sulfate 0.125 Mg Tab SUBLINGUAL 10/11/24 20:24 0.25 mg ONCE ONE Administration Sodium Chloride 1,000 mls @ 1,000 mls/hr 10/11/24 20:23 10/11/24 21:49 0.9 % Sodium Chloride 1000 Ml IV 10/11/24 21:22 Infused .Q1H ONE Infusion Lactated Ringer's 1,000 mls @ 1,000 mls/hr 10/11/24 21:47 10/11/24 22:35 Lactated Ringers 1000 Ml IV 10/11/24 22:46 Infused .Q1H ONE Infusion Ketorolac Tromethamine 30 mg 10/11/24 21:40 10/11/24 21:49 Ketorolac 30 Mg/Ml Inj IVP 10/11/24 21:41 30 mg ONCE ONE Administration Morphine Sulfate 4 mg 10/11/24 22:31 10/11/24 22:35 Morphine 4 Mg/Ml Inj IVP 10/11/24 22:32 4 mg ONCE ONE Administration Ondansetron HCl 4 mg 10/11/24 20:23 10/11/24 20:30 Ondansetron 2 Mg/Ml Inj IVP 10/11/24 20:24 4 mg ONCE ONE Administration Medical Decision Making MDM Narrative Medical decision making narrative: Persisting abdominal pain of unclear etiology at this point. Would presume intestinal colic due to inflammation. Does appear to have encountered some significant emotional stressors lately as well which might be playing a role. Would check hemoglobin and white count to prompt further more urgent workup. Try to offer symptom relief at this point. Possible in history/details on initial interview clarified in H PI Ordered for normal saline fluid bolus and hyoscyamine and Zofran. Perhaps is experiencing vasovagal episodes secondary to abdominal pain. Labs are reassuring, unremarkable other than mild elevation of CRP. Minimal improvement. Apologetically reporting episodes of escalating pain. With clarification that appears to be constipated to some degree, ordered a one view x-ray. Had spasm of pain requiring dose of morphine prior to this imaging. I did independently review abdominal x-ray. Well-defined bladder apparent. Ultimately did have what looks to have been about 300 mL of urine out. Radiology over-read below Indication: Left lower abdominal pain. Technique: Supine radiographs of the abdomen. Comparison: CT abdomen pelvis 10/09/2024. Findings/Impression: Nonobstructive bowel gas pattern. No radiographic evidence of free intraperitoneal air. No suspicious soft tissue calcifications. No acute osseous abnormality. Dictated by Javad Patterson MD @ 10/11/2024 11:11:23 PM Have not seen affect yet of proton pump inhibitor most likely. But perhaps sucralfate might be helpful in the future. Vitals remain good and stable. Little to offer further in emergent care this evening. Perhaps can assist tomorrow as they seem to have had trouble scheduling endoscopy and potentially colonoscopy. Does have concerns of affordability due to very high deductible healthcare plan. Perhaps does need some assistance with bowel movements. Bleeding as described is most likely rectal passage. See patient discharge plan for further discussion You can continue with MiraLax equivalent dosing adjusting to stool consistency over the next 2-3 weeks. If you are trying for a bowel cleanout, magnesium citrate can be effective. Drink a bottle and repeat next day if no significant result. Otherwise if experiencing particularly hard stools, consider placement of an enema and repeating in an hour if no significant result. These can be of phospho soda or mineral oil. Incidentally mineral oil also helps with constipation. Continue with prescribed omeprazole over the next 2-3 weeks. Tomorrow the ER will try to help you schedule the recommended endoscopy. I feel less convinced of urgent need of colonoscopy if you might have to choose. Prescribing Zofran from [facility] for nausea if you need. Medical Records Medical records reviewed: Yes I reviewed the patient's medical records Lab Data Lab results reviewed: Yes I reviewed the patient's lab results Labs: Lab Results 10/11/24 10/11/24 Range/Units 20:30 21:26 WBC 4.89 (4.50-11.00) K/uL RBC 5.26 (4.30-5.90) m/uL Hgb 15.2 (13.5-17.5) gm/dL Hct 45.3 (37.0-53.0) % MCV 86 (80-100) fL MCH 29 (26-34) pg MCHC 34 (32-36) gm/dL RDW Coeff of Saira 12.7 (11.5-15.5) % Plt Count 183 (140-440) K/uL Neut % (Auto) 42.5 (42.0-72.0) % Lymph % (Auto) 39.3 (20-44) % Fountain % (Auto) 13.9 H (0.0-11.0) % Eos % (Auto) 3.7 (0.0-7.0) % Baso % (Auto) 0.4 (0.0-3.0) % Neut # (Auto) 2.08 (1.7-7.0) K/uL Lymph # (Auto) 1.92 (0.90-2.90) K/uL Fountain # (Auto) 0.70 (0.00-0.90) K/UL Eos # (Auto) 0.18 (0.00-0.50) K/uL Baso # (Auto) 0.02 (0.00-0.30) K/uL Abs Immat Gran (auto) 0.01 (0.00-0.30) K/uL Imm/Tot Granulo (auto) 0.2 % ESR 7 (2-15) mm/hr Sodium 137 (135-149) mmol/L Potassium 4.0 (3.6-5.1) mmol/L Chloride 102 (96-114) mmol/L Carbon Dioxide 25 (20-32) mmol/L Anion Gap 10 (7-15) mEq/L BUN 8 (5-24) mg/dL Creatinine 1.0 (0.5-1.5) mg/dL Estimated Creat Clear 130.95 Estimated GFR 109 ml/min Glucose 82 (60-115) mg/dL Calcium 9.0 (8.4-10.6) mg/dL Total Bilirubin 0.3 (0.1-1.5) mg/dL Direct Bilirubin 0.2 (0.0-0.5) mg/dL AST 16 (12-35) U/L ALT 20 (4-50) U/L Alkaline Phosphatase 68 (40-150) U/L C-Reactive Protein 1.6 H (0.5-1.0) mg/dL Total Protein 7.1 (6.0-8.3) g/dL Albumin 4.4 (3.3-5.0) g/dL Lipase 54 (23-300) U/L SARS-CoV-2 (PCR) Negative SARS-CoV-2 (Negative) Influenza Type A (PCR) Negative PCR FLU A (Negative) Influenza Type B (PCR) Negative PCR FLU B (Negative) RSV (PCR) Negative PCR RSV (Negative) Discharge Plan Discharge Clinical Impression: Abdominal pain, Hematochezia Patient Disposition: Home w/ Parent or Adult Condition: Stable Additional Instructions: You can continue with MiraLax equivalent dosing adjusting to stool consistency over the next 2-3 weeks. If you are trying for a bowel cleanout, magnesium citrate can be effective. Drink a bottle and repeat next day if no significant result. Otherwise if experiencing particularly hard stools, consider placement of an enema and repeating in an hour if no significant result. These can be of phospho soda or mineral oil. Incidentally mineral oil also helps with constipation. Continue with prescribed omeprazole over the next 2-3 weeks. Tomorrow the ER will try to help you schedule the recommended endoscopy. I feel less convinced of urgent need of colonoscopy if you might have to choose. Prescribing Zofran from [facility] for nausea if you need. Prescriptions: No Action albuterol sulfate 90 mcg/actuation HFA aerosol inhaler 2 puff inhalation Q6H PRN albuterol sulfate 2.5 mg /3 mL (0.083 %) solution for nebulization 2.5 mg inhalation Q4-6H PRN montelukast 10 mg tablet 10 mg PO QDAY hydrocodone-acetaminophen 5-325 mg tablet 1 tab PO Q4-6H PRN (Reason: pain) Qty: 6 0RF Follow Up/Referrals: Provider,Not a Local [Primary Care Provider] - Stand Alone Forms: ComptTIA Info Instructions
[2024-10-11] MEDS: HYOSCYAMINE SULFATE 0.125 MG TAB 0.25 MG SUBLINGUAL (20:29)
[2024-10-11] MEDS: 0.9 % SODIUM CHLORIDE 1000 ml 1,000 ML IV (20:30)
[2024-10-11] MEDS: ONDANSETRON 2 MG/ML inj 4 MG IVP (20:30)
[2024-10-11 20:37] LABS: Basophils Absolute Auto 0.02 K/uL (0.00-0.30); Basophils Percent Auto 0.4 % (0.0-3.0); Eosinophils Absolute Auto 0.18 K/uL (0.00-0.50); Eosinophils Percent Auto 3.7 % (0.0-7.0); Hematocrit 45.3 % (37.0-53.0); Hemoglobin* 15.2 gm/dL (13.5-17.5); Immature Granulocytes Abs Auto 0.01 K/uL (0.00-0.30); Immature Granulocytes Pct Auto 0.2 %; Lymphocytes Absolute Auto 1.92 K/uL (0.90-2.90); Lymphocytes Percent Auto 39.3 % (20-44); Mean Corpuscular HGB Conc 34 gm/dL (32-36); Mean Corpuscular Hemoglobin 29 pg (26-34); Mean Corpuscular Volume 86 fL (80-100); Monocytes Percent Auto 13.9 % (0.0-11.0); Neutrophils Absolute Auto 2.08 K/uL (1.7-7.0); Neutrophils Percent Auto 42.5 % (42.0-72.0); Platelet Count* 183 K/uL (140-440); RDW Coefficient of Variation % 12.7 % (11.5-15.5); Red Blood Count 5.26 m/uL (4.30-5.90); Slide Review Reflex No; White Blood Count* 4.89 K/uL (4.50-11.00)
[2024-10-11 20:49] LABS: Chloride* 102 mmol/L (96-114)
[2024-10-11 20:50] LABS: Albumin* 4.4 g/dL (3.3-5.0); Sodium* 137 mmol/L (135-149)
[2024-10-11 20:52] LABS: Blood Urea Nitrogen* 8 mg/dL (5-24); Est. Creatinine Clearance* 130.95; Estimated Glomerular Filt Rate 109 ml/min
[2024-10-11 20:53] LABS: Alkaline Phosphatase* 68 U/L (40-150); Anion Gap 10 mEq/L (7-15); Aspartate Amino Transferase* 16 U/L (12-35); Bilirubin Direct* 0.2 mg/dL (0.0-0.5); Bilirubin Total* 0.3 mg/dL (0.1-1.5); Carbon Dioxide* 25 mmol/L (20-32); Glucose* 82 mg/dL (60-115); Lipase* 54 U/L (23-300); Total Protein* 7.1 g/dL (6.0-8.3)
[2024-10-11 20:54] LABS: Alanine Aminotransferase* 20 U/L (4-50)
[2024-10-11 20:56] LABS: C Reactive Protein* 1.6 mg/dL (0.5-1.0)
--- OUTSIDE RECORDS SUMMARY | 2024-10-11 20:59 | XMS_ITS | Clinical Summary ---
Author Organization [facility] Address Formerly [facility] 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 Gender Identity Not on file Sexual Orientation [...] Insurance [address], [place] [id number] [address] [place] [id number] WC RISK ADMINSTRATION [facility] Advance Directives For more information, please contact: [phone] * No Code Status (Latest Code Status on File) Date Activated Date Inactivated Comments 07/25/2004 2:39 PM 07/25/2004 3:39 PM Care Teams Refrigeration Engine Operator Relationship Specialty Start Date End Date Danny Collazo PA-C [facility] [place] [address] [place] [address] PCP - General Family Practice 10/19/13
--- OUTSIDE RECORDS SUMMARY | 2024-10-11 20:59 | XMS_ITS | Clinical Summary ---
Author Organization [employer] Address [address] [place] [address] Care Team Providers Care Regional Account Manager Name Role Phone Unavailable Primary Care Provider Unavailabl e Source Comments You are receiving this document as you are listed as the primary care provider,follow-up provider, or the patient has been referred to you for consultation.This is in compliance with the Medicare andSumma Healthcaid EHR Incentive Program,which states Providers who transition their patient to another setting of careor provider of care or refers their patient to another provider of care shouldprovide summary care record for each transition of care or referral. [employer] Medications montelukast (SINGULAIR) 10 MG tablet Take [...] 03/13/2016, 04/10/2015 [place] [phone]
--- OUTSIDE RECORDS SUMMARY | 2024-10-11 20:59 | XMS_ITS | Clinical Summary ---
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 Gender Identity Not on file Sexual Orientation Not on file Obstetrics History Last Filed Vital Signs Vital Sign Reading Time Taken Comments Blood Pressure 126/70 09/21/2023 8:10 AM GRAIN AND YEAST PLANTS SUPERVISOR Pulse 86 09/21/2023 8:10 AM GRAIN AND YEAST PLANTS SUPERVISOR Temperature - - Respiratory Rate 18 09/21/2023 8:10 AM GRAIN AND YEAST PLANTS SUPERVISOR Oxygen Saturation - - Inhaled Oxygen Concentration - - Weight 120.2 kg (265 lb) 09/08/2023 8:22 AM GRAIN AND YEAST PLANTS SUPERVISOR Height - - Body Mass Index - [...] age to complete this topic Insurance [facility] [place] [id number] [employer] [place] RISK ADMINISTRATIVE SERVICES [place] [id number] Care Teams Director Of Special Events Relationship Specialty Start Date End Date [facility] [address] [place] [address] PCP - General 09/08/23
[2024-10-11 21:28] LABS: Erythrocyte SedimentationRate* 7 mm/hr (2-15)
[2024-10-11] MEDS: KETOROLAC 30 MG/ML inj IVP (21:49)
[2024-10-11] MEDS: LACTATED RINGERS 1000 ML 1,000 ML IV (21:53)
[2024-10-11 22:15] LABS: PCR FLU A Negative PCR FLU A (Negative); PCR FLU B Negative PCR FLU B (Negative); PCR RSV Negative PCR RSV (Negative); SARS PCR* Negative SARS-CoV-2 (Negative)
[2024-10-11] MEDS: MORPHINE 4 MG/ML INJ IVP (22:35)
== END 2024-10-11 23:59 | disposition home or self-care (01) ==
PROVIDERS: Emergency Provider Family Medicine
DX: R10.32 Left lower quadrant pain (principal); K92.1 Melena
CPT/HCPCS: 36415; 74018; 80048; 80076; 83690; 85025; 85651; 86140; 87631; 94761; 96374; 96375; 99284; A9270; J1885; J2270; J2405; J7030; J7120

== ENCOUNTER 2024-10-16 10:16 | Outpatient (CLI) | payer BC, SELFPAY ==
--- NOTE | 2024-10-16 10:57 | W.ANESCHARGE ---
Anesthesia Charges Start Date/Time Anesthesia Start Date: 10/16/24 Anesthesia Start Time: 11:22 Stop Date/Time Anesthesia Stop Date: 10/16/24 Anesthesia Stop Time: 11:58 Coding CPT Codes CPT Codes: ANES UPR LWR GI NDSC PX - 85718 ([id number]) P2 - PATIENT W/MILD SYST DISEASE, QK - INTEGRATION ANALYST 2-4 CNCRNT ANES PROC, QX - CENTRIFUGAL MACHINE TENDER SVC W/ MD MED DIRECTION
--- NOTE | 2024-10-16 12:00 | W.ANESCHARGE ---
Anesthesia Charges Start Date/Time Anesthesia Start Date: 10/16/24 Anesthesia Start Time: 11:22 Stop Date/Time Anesthesia Stop Date: 10/16/24 Anesthesia Stop Time: 11:58 Coding CPT Codes CPT Codes: ANES UPR LWR GI NDSC PX - 23643 ([id number]) P2 - PATIENT W/MILD SYST DISEASE, QK - LVN 2-4 CNCRNT ANES PROC, QX - COMPANY DANCER SVC W/ MD MED DIRECTION
== END 2024-10-16 10:17 | disposition home or self-care (01) ==
LOC: OP CLINIC 10:17
PROVIDERS: Visit Provider Surgery
DX: K92.2 Gastrointestinal hemorrhage, unspecified (principal); K22.89 Other specified disease of esophagus; K44.9 Diaphragmatic hernia without obstruction or gangrene; K31.7 Polyp of stomach and duodenum; K62.5 Hemorrhage of anus and rectum
CPT/HCPCS: 00813; 43239; 45378; 88305; J2704; J3490

== ENCOUNTER 2025-05-29 15:57 | Emergency (ER) | payer BC, SELFPAY ==
[2025-05-29] VITALS (20 sets, daily range): BP systolic 131–167; BP diastolic 69–108; PULSE 75–94; RESP 10–30; TEMP 36.1; O2SAT 96–100; BMI 36.4
--- OUTSIDE RECORDS SUMMARY | 2025-05-29 16:01 | XMS_ITS | Clinical Summary ---
Author Organization [employer] Address [address] [address] Care Team Providers Care Insurance Producer Name Role Phone Unavailable Primary Care Provider Unavailabl e Source Comments You are receiving this document as you are listed as the primary care provider,follow-up provider, or the patient has been referred to you for consultation.This is in compliance with the Medicare and[facility] EHR Incentive Program,which states Providers who transition their patient to another setting of careor provider of care or refers their patient to another provider of care shouldprovide summary care record for each transition of care or referral. [facility] Medications montelukast (SINGULAIR) 10 MG tablet Take [...] Services) 2018 Adult Preventive Visit 2020 HepB Vaccine (1) 2021 DTaP/Tdap/Td Vaccine (7 - Tdap) 04/10/2025 04/10/2015, 04/12/2008, 04/03/2005, Additional history exists COVID-19 Vaccine (2 - season) 2025 06/25/2021 Influenza Vaccine (#1) 2025 , 08/21/2020, 05/24/2017 Zoster/Shingles Vaccine (1 of 2) 2052 Hib Vaccine Completed 08/28/2003, 11/15, 2002 Pneumococcal Vaccine Aged Out 08/28/2003, 2002, 2002 No longer eligible based on patient's age to complete this topic IPV (Polio) Vaccine Completed 04/12/2008, 04/03/2005, 2002, Additional history exists MCV4 Vaccine Aged Out 04/10/2015 No longer eligi ble based on patient's age to complete this topic HPV Vaccine Completed 03/13/2016, 04/10/2015 HepA Vaccine Completed 03/13/2016, 04/10/2015 Insurance [place] [phone]
--- OUTSIDE RECORDS SUMMARY | 2025-05-29 16:01 | XMS_ITS | Clinical Summary ---
Author Organization [facility] Address [address] [place] [address]. [place] [address] Care Team Providers Care Teamcenter Solution Architect Name Role Phone Danny Collazo PA-C Primary Care Provider [phone] Allergies Active Allergy Reactions Criticality Noted Date [...] Date Intermittent asthma 10/14/2010 Cough 03/08/2007 Immunizations Immunization Administration Dates Next Due Comvax (HIB/HepB) 2002,2002 DTAP (<7y) 04/12/2008,04/03/2005,2002 ,2002 HepB 2002 MMR (MMRII) 04/12/2008,08/28/2003 Pneumococcal (PCV 7) 08/28/2003,2002,07/25 Poliovirus, inactivated (IPV) 04/12/2008, 005,2002,2002 TDAP (Adacel,Boostrix) 04/10/2015 TRIHIBIT (DTAP/HIB, <7y) 08/28/2003 Varicella (Varivax) 04/12/2008,08/28/2003 Family History Medical History Relation Comments [...] on file 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 Gender Identity Not on file Sexual Orientation [...] 04/30/2022 8:58 PM CDT Plan of Treatment Not on file Insurance WC RISK ADMINSTRATION [facility] [place] [address] Advance Directives For more information, please contact: [phone] * No Code Status (Latest Code Status on File) Date Activated Date Inactivated Comments 07/25/2004 2:39 PM 07/25/2004 3:39 PM Care Teams Teamcenter Solution Architect Relationship Specialty Start Date End Date Danny Collazo PA-C [address] [place] [id number] PCP - General Family Practice 10/19/13
--- OUTSIDE RECORDS SUMMARY | 2025-05-29 16:01 | XMS_ITS | Clinical Summary ---
Author Organization [email or web address] [facility] Address [address] [place] [id number] Care Team Providers Care Territory Service Representative Name Role Phone [place] [facility] Primary Care Provid er Allergies No known active allergies Medications montelukast (Singulair) 10 mg tablet Take 10 mg by mouth once daily. 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 Gender Identity Not on file Sexual Orientation Not on file Obstetrics History Last Filed Vital Signs Vital Sign Reading Time Taken Comments Blood Pressure 126/70 09/21/2023 8:10 AM TRAINING FACILITATOR Pulse 86 09/21/2023 8:10 AM TRAINING FACILITATOR Temperature - - Respiratory Rate 18 09/21/2023 8:10 AM TRAINING FACILITATOR Oxygen Saturation - - Inhaled Oxygen Concentration - - Weight 120.2 kg (265 lb) 09/08/2023 8:22 AM TRAINING FACILITATOR Height - - Body Mass Index - - Plan of Treatment Health Maintenance Due Date Last Done Comments Tetanus booster 2013 Depression screening for age 12+ 2014 HIV for age 15-65 2017 HPV series for age 9-45 (1 - Male 3-dose series) 2017 BMI (ht and wt on same day) for age 18+ 2020 Hepatitis C screening for ag e 18-79 2020 Hepatitis B series for 19+ ( 1 of 3 - 19+ 3-dose series) 2021 COVID-19 vaccine series (2 - 2024- season) 2025 06/25/2021 Influenza Vaccine (#1) 2025 RSV vaccine for adults or (1 - 1-dose 75+ series) 2077 Pneumococcal series for age 6-49 Aged Out No longer eligible based on patient's age to complete this topic Insurance [place] [employer] [employer] [employer] [place] [employer] Care Teams Territory Service Representative Relationship Specialty Start Date End Date [place] [facility] [address] [place] [address] PCP - General 09/08/23
[2025-05-29 16:30] LABS: Glucose, Point-of-Care* 100 mg/dl (60-115)
--- NOTE | 2025-05-29 17:23 | ED.GENADULT ---
HPI - General Adult General Chief complaint: Syncope/Fainted Stated complaint: LOC off and on, trembling, lethargic Time Seen by Provider: 05/29/25 16:47 Source: patient Mode of arrival: ambulatory Limitations: no limitations History of Present Illness HPI narrative: 25-year-old male presenting today after syncopal episode at work. 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 He states when he tried to sit up the room started slowly rotating around him. He was able to sit back against his toolbox and drink some water. However at some point in time he passed out. The person he was working with stated that he are lost consciousness. He does not remember this. He does remember his vision going dark. He also remembers a fluttering in his chest at some point in time as well. States that his friend put him in his car and they came to the ER together and he states that his friend told him he passed out in the car as well. He does not remember this. Patient states that he has had his several syncopal episodes in the past. He states that several years ago this occurred a couple times and that several months ago this occurred again when he was having abdominal pain and he ?collapsed at work?. He denies any recent illness, no headache or changes in his vision. No ringing in his ears. No chest pain or abdominal discomfort. He denies any family history of sudden in young members less than 40 years old. Patient does smoke, denies other drug use. Denies alcohol use. States his appetite has been normal recently. States that he has a history of asthma, takes his medications as prescribed which includes albuterol inhaler and montelukast. Related Data Home Medications ?Medication ?Instructions ?Recorded ?Confirmed albuterol sulfate 2.5 mg/3 mL 2.5 mg inhalation Q4-6H PRN 10/09/24 05/29/25 (0.083 %) solution for nebulization albuterol sulfate 90 mcg/actuation 2 puff inhalation Q6H PRN 10/09/24 05/29/25 aerosol inhaler montelukast 10 mg tablet 10 mg PO QDAY 10/09/24 05/29/25 Allergies Allergy/AdvReac Type Severity Reaction Status Date / Time No Known Drug Allergies Allergy Verified 05/10/25 14:06 Review of Systems Status of ROS: Reports: 10 or more systems reviewed and unremarkable except as noted in History and below PFSH PFS Medical History TMJ (dislocation of temporomandibular joint) ?S03.00XA - Dislocation of jaw, unspecified side, initial encounter (ICD-10) Seasonal allergies ?J30.2 - Other seasonal allergic rhinitis (ICD-10) History of snoring ?Z87.898 - Personal history of other specified conditions (ICD-10) History of echocardiogram ?Z92.89 - Personal history of other medical treatment (ICD-10) History of anal fissures ?Z87.19 - Personal history of other diseases of the digestive system (ICD-10) Intermittent asthma ?J45.20 - Mild intermittent asthma, uncomplicated (ICD-10) Reflux esophagitis ?K21.00 - Gastro-esophageal reflux disease with esophagitis, without bleeding (ICD-10) Family History Mother Family history of gestational diabetes High blood pressure Asthma Hayfever Gastric ulcer Father Throat cancer Coronary artery disease Hx of CABG Depression Osteoporosis Cerebrovascular disease High cholesterol Maternal Grandmother High blood pressure Colitis Maternal Grandfather Heart disease High blood pressure Paternal Grandmother Alcohol dependence Paternal Grandfather Alcohol dependence Cerebrovascular disease Heart disease Social History What is your current living situation?: I presently have a place to live Problems where you live: no known problems In the past 12 months, utilities in danger of being shut off: no In past 12 months, lack of transportation kept you from medical appts, meetings, work, or getting things needed for daily living: no In the past 12 mos, have been you worried that your food would run out before you had money to buy more?: never true In the past 12 mos, the food you bought just didn't last and you didn't have money to buy more?: never true Smoking Status: Never smoker Do you use any of these nicotine containing products: Vaping Products Second hand tobacco smoke exposure: No How often do you have a drink containing alcohol: monthly or less AUDIT-C Alcohol total score: 1 Non-prescribed substance use: denies use How often does anyone, including family, friends and others, physically hurt you: never How often does anyone, including family, friends and others, insult or talk down to you: never How often does anyone, including family, friends and others, threaten you with harm: never How often does anyone, including family, friends and others, scream or curse at you: never Exam Narrative: Exam Narrative: Overweight, well-developed patient in no acute distress. Alert and oriented. Answers questions appropriately. Mood and affect are appropriate. Thoughts are goal oriented and rational. No tangential or magical thinking noted. Patient speaks in full sentences without needing to catch his breath. HEENT: Normocephalic atraumatic. Pupils are equally round reactive to light. Extraocular muscles are intact. Conjunctivae are moist without any icterus noted. Moist mucous membranes. Posterior pharynx is normal. Neck is soft without any lymphadenopathy or thyromegaly. No masses are appreciated. Cardiovascular: Heart is regular rate and rhythm S1 and S2 are present without any murmurs. Lungs: Clear to auscultation bilaterally no wheezes rhonchi or rales are appreciated. Patient takes deep breaths without any discomfort. Abdomen: Soft and nontender nondistended with normal bowel sounds. Extremities: Bilateral lower extremities are without edema. Skin: Well perfused without any obvious rashes. Strength is 5/5 of the upper and lower extremities. Cranial nerves 3-12 are normal. [id number] is normal. There is no nystagmus either horizontally or vertically. Gait is normal. Const: Vital Signs, click to edit/add: Vital Signs - 24 hr 05/29/25 16:23 05/29/25 16:46 05/29/25 16:51 Temperature 97 F L Pulse Rate Pulse Rate [Pulse Oximeter] 85 Respiratory Rate 16 10 L Blood Pressure Blood Pressure [Ri ght Upper Arm] 153/93 H Blood Pressure [or thostatic sitting] 153/93 H Blood Pressure [or thostatic standing ] 167/108 H Pulse Oximetry 98 Oxygen Delivery Me thod Room Air 05/29/25 17:21 05/29/25 17:36 05/29/25 17:45 Temperature Pulse Rate Pulse Rate [Pulse Oximeter] Respiratory Rate 12 18 Blood Pressure Blood Pressure [Ri ght Upper Arm] Blood Pressure [or thostatic sitting] Blood Pressure [or thostatic standing ] Pulse Oximetry 97 Oxygen Delivery Me thod 05/29/25 17:59 05/29/25 18:00 05/29/25 18:02 Temperature Pulse Rate 82 94 88 Pulse Rate [Pulse Oximeter] Respiratory Rate 18 30 H 29 H Blood Pressure 150/85 H 145/69 H Blood Pressure [Ri ght Upper Arm] Blood Pressure [or thostatic sitting] Blood Pressure [or thostatic standing ] Pulse Oximetry 97 97 Oxygen Delivery Nv thod 05/29/25 18:15 05/29/25 18:30 05/29/25 18:45 Temperature Pulse Rate 85 92 81 Pulse Rate [Pulse Oximeter] Respiratory Rate 25 H 28 H 22 Blood Pressure Blood Pressure [Ri ght Upper Arm] Blood Pressure [or thostatic sitting] Blood Pressure [or thostatic standing ] Pulse Oximetry 98 96 [facility] 19[facility]00 05/29/25 19:02 05/29/25 19:03 Temperature Pulse Rate 75 85 82 Pulse Rate [Pulse Oximeter] Respiratory Rate 14 20 21 Blood Pressure 131/96 H Blood Pressure [Ri ght Upper Arm] Blood Pressure [or thostatic sitting] Blood Pressure [or thostatic standing ] Pulse Oximetry 100 99 100 Oxygen Delivery Nv thod 05/29/25 19:15 05/29/25 19:30 05/29/25 19:50 Temperature Pulse Rate 93 83 87 Pulse Rate [Pulse Oximeter] Respiratory Rate 18 22 Blood Pressure Blood Pressure [Ri ght Upper Arm] Blood Pressure [or thostatic sitting] Blood Pressure [or thostatic standing ] Pulse Oximetry 100 97 97 Oxygen Delivery Nv thod 05/29/25 20:00 05/29/25 20:02 Temperature Pulse Rate 93 92 Pulse Rate [Pulse Oximeter] Respiratory Rate 22 Blood Pressure 137/85 Blood Pressure [Ri ght Upper Arm] Blood Pressure [or thostatic sitting] Blood Pressure [or thostatic standing ] Pulse Oximetry 98 97 Oxygen Delivery Nv thod Course Course ED Course: Differential includes vasovagal syncope, dehydration, arrhythmia. The patient states that he has had a cardiovascular workup including an echocardiogram which were unremarkable. He believes he has had a heart monitor as well. IV established and patient started on 1 L of normal saline. EKG, read by me, shows normal sinus rhythm with a pulse of 85. Normal QRS, QTC and NH intervals. Blood work is unremarkable. Urinalysis looks mildly dehydrated. No cardiac events while he was here. Vital Signs Vital signs: Initial Vital Signs Temperature 97 F L 05/29/25 16:23 Temperature Source Temporal Artery Scan 05/29/25 16:23 Pulse Rate 85 05/29/25 16:23 Respiratory Rate 16 05/29/25 16:23 Blood Pressure 153/93 H 05/29/25 16:23 Blood Pressure Mean 113 H 05/29/25 16:23 Blood Pressure Position Sitting 05/29/25 16:23 Pulse Oximetry 98 05/29/25 16:23 Oxygen Delivery Method Room Air 05/29/25 16:23 Vital Signs Temperature 97 F L 05/29/25 16:23 Pulse Rate 85 05/29/25 16:23 Respiratory Rate 16 05/29/25 16:23 Blood Pressure 153/93 H 05/29/25 16:23 Pulse Oximetry 98 05/29/25 16:23 Oxygen Delivery Method Room Air 05/29/25 16:23 Temperature 97 F L 05/29/25 16:23 Pulse Rate 92 05/29/25 20:02 Respiratory Rate 22 05/29/25 20:02 Blood Pressure 137/85 05/29/25 20:02 Pulse Oximetry 97 05/29/25 20:02 Oxygen Delivery Method Room Air 05/29/25 16:23 Medications Administered Medications: Discontinued Medications Generic Name Dose Route Start Last Admin Trade Name Freq PRN Reason Stop Dose Admin Sodium Chloride 1,000 mls @ 1,000 mls/hr 05/29/25 18:30 05/29/25 19:26 0.9 % Sodium Chloride 1000 Ml IV 05/29/25 19:29 Infused .Q1H CIPRIANO Infusion Medical Decision Making [facility] Narrative Medical decision making narrative: 25-year-old male status post syncopal episode. Sounds like this has occurred in the past and patient has undergone a workup for it. I would like for him to follow up with primary care provider this week to discuss what happened and to discuss if he needs any further workup at this time. Lab Data Lab results reviewed: Yes I reviewed the patient's lab results Labs: Lab Results 05/29/25 05/29/25 05/29/25 Range/Units 16:29 17:30 17:50 WBC 7.56 (4.50-11.00) K/uL RBC 5.14 (4.30-5.90) m/uL Hgb 14.9 (13.5-17.5) gm/dL Hct 43.2 (37.0-53.0) % MCV 84 (80-100) fL MCH 29 (26-34) pg MCHC 35 (32-36) gm/dL RDW Coeff of Saira 12.5 (11.5-15.5) % Plt Count 247 (140-440) K/uL Neut % (Auto) 61.2 (42.0-72.0) % Lymph % (Auto) 26.6 (20-44) % [place] % (Auto) 7.5 (0.0-11.0) % Eos % (Auto) 3.6 (0.0-7.0) % Baso % (Auto) 0.8 (0.0-3.0) % Neut # (Auto) 4.63 (1.7-7.0) K/uL Lymph # (Auto) 2.01 (0.90-2.90) K/uL [place] # (Auto) 0.60 (0.00-0.90) K/UL Eos # (Auto) 0.27 (0.00-0.50) K/uL Baso # (Auto) 0.06 (0.00-0.30) K/uL Abs Immat Gran (auto) 0.02 (0.00-0.30) K/uL Imm/Tot Granulo (auto) 0.3 % Sodium 136 (135-149) mmol/L Potassium 3.8 (3.6-5.1) mmol/L Chloride 102 (96-114) mmol/L Carbon Dioxide 25 (20-32) mmol/L Anion Gap 9 (7-15) mEq/L BUN 15 (5-24) mg/dL Creatinine 0.9 (0.5-1.5) mg/dL Estimated Creat Clear 144.26 Estimated GFR 123 ml/min Glucose 113 (60-115) mg/dL Lactate 1.9 (0.5-1.9) mmol/L Calcium 9.1 (8.4-10.6) mg/dL Magnesium 2.0 (1.5-2.6) mg/dL Total Bilirubin 0.4 (0.1-1.5) mg/dL Direct Bilirubin 0.3 (0.0-0.5) mg/dL AST 34 (12-35) U/L ALT 54 H (4-50) U/L Alkaline Phosphatase 77 (40-150) U/L Troponin I < 0.01 (0.01-0.04) ng/mL C-Reactive Protein < 0.5 L (0.5-1.0) mg/dL Total Protein 7.8 (6.0-8.3) g/dL Albumin 4.5 (3.3-5.0) g/dL TSH 1.470 (0.270-4.20) uIU/mL Urine Color Yellow (Yellow) Urine Appearance Turbid A (Clear) Urine pH 7.0 (5.0-8.5) Ur Specific [place] 1.020 (1.000-1.030) Urine Protein Negative (Negative) Urine Glucose (UA) Negative (Negative) Urine Ketones Negative (Negative) Urine Blood Negative (Negative) Urine Nitrite Negative (Negative) Urine Bilirubin Negative (Negative) Urine Urobilinogen 0.2 (0.2-1.0) Ur Leukocyte Esterase Negative (Negative) Urine RBC 0-2 (0-2) Urine WBC 0-2 (0-5) Ur Squamous Epith Cells Few (None-Few) Amorphous Sediment Moderate A (None) Urine Bacteria None (None) Salicylates < 1.0 L (1.0-10) mg/dL Urine Opiates Screen Negative (Negative) Ur Oxycodone Screen Negative (Negative) Urine Methadone Screen Negative (Negative) Acetaminophen < 10.0 (10.0-30.0) ug/mL Ur Barbiturates Screen Negative (Negative) U Tricyclic Antidepress Negative (Negative) Ur Phencyclidine Scrn Negative (Negative) Ur Amphetamines Screen Negative (Negative) U Methamphetamines Scrn Negative (Negative) U Benzodiazepines Scrn Negative (Negative) Urine Cocaine Screen Negative (Negative) U Marijuana (THC) Screen Negative (Negative) Ur Drug Screen Comment See Note POC Glucose 100 (60-115) mg/dl ECG Data Attestation: I personally reviewed and interpreted this ECG as follows: Discharge Plan Discharge Clinical Impression: Syncope Patient Disposition: Home, Self-Care Condition: Stable Additional Instructions: Recommend you follow-up with primary care provider this week or next week to discuss what happened today. You should discuss with her whether or not any further testing is necessary. If you have not had a bar host/hostess placed, such as a Holter monitor or a ZIO patch, then I would consider having this done. In the meantime, make sure to stay well hydrated. Prescriptions: No Action albuterol sulfate 90 mcg/actuation HFA aerosol inhaler 2 puff inhalation Q6H PRN albuterol sulfate 2.5 mg /3 mL (0.083 %) solution for nebulization 2.5 mg inhalation Q4-6H PRN montelukast 10 mg tablet 10 mg PO QDAY Follow Up/Referrals: Emiliano Polk MD [Primary Care Provider, Internal Medicine] Stand Alone Forms: [employer] Info Instructions
[2025-05-29 17:58] LABS: Appearance Urine Turbid (Clear)
[2025-05-29 18:03] LABS: Lactate* 1.9 mmol/L (0.5-1.9)
[2025-05-29 18:08] LABS: Cannabinoid Screen Urine Negative (Negative); Methamphetamines Screen Urine Negative (Negative); Tricyclic Antidepressant Urine Negative (Negative)
[2025-05-29 18:12] LABS: Hematocrit* 43.2 % (37.0-53.0); Hemoglobin* 14.9 gm/dL (13.5-17.5); Immature Granulocytes Abs Auto 0.02 K/uL (0.00-0.30); Immature Granulocytes Pct Auto 0.3 %; Lymphocytes Absolute Auto 2.01 K/uL (0.90-2.90); Mean Corpuscular HGB Conc 35 gm/dL (32-36); Mean Corpuscular Hemoglobin 29 pg (26-34); Mean Corpuscular Volume 84 fL (80-100); RDW Coefficient of Variation % 12.5 % (11.5-15.5); Red Blood Count* 5.14 m/uL (4.30-5.90); White Blood Count* 7.56 K/uL (4.50-11.00)
[2025-05-29 18:18] LABS: Slide Review Reflex No
[2025-05-29 18:19] LABS: Albumin* 4.5 g/dL (3.3-5.0); Chloride* 102 mmol/L (96-114); Potassium* 3.8 mmol/L (3.6-5.1); Sodium* 136 mmol/L (135-149)
[2025-05-29 18:21] LABS: Blood Urea Nitrogen* 15 mg/dL (5-24); Creatinine* 0.9 mg/dL (0.5-1.5); Est. Creatinine Clearance* 144.26; Estimated Glomerular Filt Rate 123 ml/min
[2025-05-29 18:22] LABS: Alanine Aminotransferase* 54 U/L (4-50); Alkaline Phosphatase* 77 U/L (40-150); Anion Gap 9 mEq/L (7-15); Aspartate Amino Transferase* 34 U/L (12-35); Bilirubin Direct* 0.3 mg/dL (0.0-0.5); Bilirubin Total* 0.4 mg/dL (0.1-1.5); Calcium* 9.1 mg/dL (8.4-10.6); Carbon Dioxide* 25 mmol/L (20-32); Glucose* 113 mg/dL (60-115); Total Protein* 7.8 g/dL (6.0-8.3)
[2025-05-29 18:27] LABS: Acetaminophen* < 10.0 ug/mL (10.0-30.0); Salicylate* < 1.0 mg/dL (1.0-10)
== END 2025-05-29 20:50 | disposition home or self-care (01) ==
PROVIDERS: Emergency Provider Family Medicine; PCP Internal Medicine
DX: R55 Syncope and collapse (principal)
CPT/HCPCS: 36415; 80048; 80076; 80143; 80179; 80306; 81001; 82947; 83605; 83735; 84443; 84484; 85025; 86140; 87086; 93005; 94761; 96360; 99284; J7030

== ENCOUNTER 2025-06-07 14:04 | Outpatient (CLI) | payer BC, SELFPAY ==
--- NOTE | 2025-06-07 14:00 | CRLHL7_ITS ---
For Patients: As a result of the Century Cures Act, medical imaging exams and procedure reports are released immediately into your electronic medical record. You may view this report before your referring provider. If you have questions, please contact your health care provider. INDICATION: Right TMJ disorder. COMPARISON: None. TECHNIQUE: CT of the facial bones with IV contrast. ICD 370, 143 cc of. FINDINGS: No facial fractures. Specifically, nasal bones, zygomatic arches and bony orbits are intact. No on 6 osseous lesions. Normal articulation at the bilateral temporomandibular joints. No significant degenerative changes of the mandibular condyles. No evidence of inflammation or large joint effusion of the TMJ bilaterally. Mucosal thickening and fluid with near opacification of left maxillary sinus. Mild mucosal thickening right maxillary sinus. Os middle complexes are opacified. Nasal septal deviation to the right measured approximately 3 mm from midline. Rightward nasal septal spur. Mucosal thickening of the right frontal sinus and bilateral anterior ethmoid air cells. Mastoid air cells are clear. Normal bilateral parotid and submandibular glands. There are prominent and enlarged bilateral level 2 lymph nodes the largest of which measures 2.3 cm in maximal diameter on the left (series 3, image 35). These may be reactive. IMPRESSION: 1. Normal articulation at the bilateral TMJ. No large joint effusions. No abnormal enhancement. 2. No facial fractures. 3. Moderate sinusitis. Near complete opacification of the left maxillary sinus. Please note that all CT scans at this facility use dose modulation, iterative reconstruction, and/or weight-based dosing when appropriate to reduce radiation dose to as low as reasonably achievable. Dictated by Antony Logan MD @ 06/08/2025 2:18:14 PM (Electronically Signed)
--- NOTE | 2025-06-07 14:30 | CRLHL7_ITS ---
For Patients: As a result of the Century Cures Act, medical imaging exams and procedure reports are released immediately into your electronic medical record. You may view this report before your referring provider. If you have questions, please contact your health care provider. INDICATION: Right TMJ disorder. COMPARISON: CT 07 June 2025. TECHNIQUE: Oblique sagittal open and closed mouth T1 and T2 sequences temporomandibular joints. Coronal and axial localizers. Motion degrades provided sequences. FINDINGS: Right: Normal morphology of the mandibular condyle and temporal eminence. No joint effusion. Appropriately positioned fibro cartilaginous disc in the open and closed-mouth views. Left: Normal temporal eminence and mandibular condyle. Normal fibro cartilaginous disc. No effusion. Appropriate position of the disc in the open and closed mouth view. IMPRESSION: Unremarkable appearance of the temporomandibular joints with some limitation due to motion artifact. Dictated by Chris Noriega MD @ 06/08/2025 10:34:36 AM (Electronically Signed)
== END 2025-06-07 14:05 | disposition home or self-care (01) ==
LOC: CT 14:05
PROVIDERS: PCP Internal Medicine; Visit Provider Oral & Maxillofacial Surgery
DX: M26.601 Right temporomandibular joint disorder, unspecified (principal); J32.0 Chronic maxillary sinusitis
CPT/HCPCS: 70336; 70487; Q9967

== ENCOUNTER 2025-06-20 13:48 | Outpatient (CLI) | payer BC, SELFPAY ==
[2025-06-20] MEDS: PERFLUTREN LIPID MICROSPHERES 2 ML VIAL IVP (15:00)
== END 2025-06-20 13:49 | disposition home or self-care (01) ==
LOC: RAD 13:49
PROVIDERS: PCP Internal Medicine; Visit Provider Internal Medicine
DX: R55 Syncope and collapse (principal)
CPT/HCPCS: 93306; Q9957